=== PATIENT | female | born 1975 | race Caucasian/White ===

== ENCOUNTER 2016-09-22 09:10 | Emergency (ER) | payer OTHER | END 2016-09-22 14:00 | disposition home or self-care (01) | LOC: ER 09:10 | DX: S29.011A Strain of muscle and tendon of front wall of thorax, initial encounter (principal); K21.9 Gastro-esophageal reflux disease without esophagitis; Z79.899 Other long term (current) drug therapy; F17.200 Nicotine dependence, unspecified, uncomplicated; X58.XXXA Exposure to other specified factors, initial encounter | CPT/HCPCS: 96374; 96375; J1885 ==

== ENCOUNTER 2017-01-18 18:02 | Emergency (ER) | payer OTHER | END 2017-01-18 18:14 | disposition left against medical advice (07) | LOC: ER 18:02 | DX: Z53.21 Procedure and treatment not carried out due to patient leaving prior to being seen by health care provider (principal) ==